=== PATIENT | male | born 1945 | race Caucasian/White ===

== ENCOUNTER 2017-03-16 10:56 | Inpatient (IN) | payer MEDICARE ==
[~2017-03-16] VITALS: Ht 177.8 cm
--- NOTE | ~2017-03-16 | CN ---
PATIENT NAME:CAMERON MORRIS MEDICAL RECORD: [id number] : 45 LOCATION:[facility] ADMIT DATE: 03/16/17 ACCOUNT: [id number] CONSULTING PHYSICIAN: MARIA C GUZMAN MD REFERRING PHYSICIAN: JACKY SMALL MD DATE OF CONSULTATION: 04/13/2017 HISTORY OF PRESENT ILLNESS: Mr. Morris is in ICU, a 72-year-old male. He is having problems with his voice, basically he has been almost aphonic since he was extubated about a week ago. He says he has a remote history of carotid endarterectomy, but had no problems with his voice after that. He says his voice was fine before he was intubated and now he has lost his voice. He is not complaining of any sore throat. No cough. He is not having any aspiration symptoms. PAST MEDICAL HISTORY: Reviewed on the chart. PHYSICAL EXAMINATION: GENERAL: He is healthy-appearing, he is in no distress. He is pretty much aphonic with his voice. EYES: Sclerae and conjunctivae are normal. EARS: Canals and TMs are normal. NOSE: No masses, polyps, or drainage. ORAL CAVITY AND OROPHARYNX: Tongue protrudes in midline. Pharynx looks normal. NECK: No masses, no adenopathy. Flexible laryngoscopy through the right side of nose after decongested with Afrin and Pontocaine. Nasal cavity and nasopharynx normal. Hypopharynx, vallecula, and base of tongue are normal. Supraglottic larynx is normal. Left cord is normal with normal mobility. The right cord really does not look like it is moving. It is in the paramedian position. Subglottis and upper trachea normal. There is no inflammation, granulation, or evidence of any injury there. IMPRESSION: 1. Aphonia 1-week status post extubation. 2. Right vocal cord paralysis apparently related to his intubation, may be a prolonged recovery or he may not recover. He is in ICU now, so not much can be done, but he may be a candidate for a vocal cord injection or medialization after discharge. He is doing okay with swallowing currently, which we have to follow and see how he does over the next couple of weeks. TRANSINT:[id number] Voice Confirmation ID: [id number] DOCUMENT ID: [id number] MARIA C GUZMAN MD at 1145 CC: [id number] DICTATION DATE: 04/13/17 1359 SOLE SCRAPER: 04/13/17 1549 ADM IN [place] [id number] [place] [id number]
--- NOTE | ~2017-03-16 | EC ---
PATIENT:CAMERON MORRIS DATE OF SERVICE: 03/16/17 SEX: M MEDICAL RECORD: [id number] DATE OF : 45 LOCATION:[facility] AGE OF PATIENT: 72 ADMISSION DATE: 03/16/17 REFERRING PHYSICIAN: INTERPRETING PHYSICIAN: MARIO PALMA MD ECHOCARDIOGRAM REPORT ECHO CHARGES 4 ECHO COMPLETE CLINICAL DIAGNOSIS: ELEVATED TROPONIN ECHOCARDIOGRAPHIC MEASUREMENTS (adult normal given) AC root (d.<3.7cm) 2.4 cm LV Septum d (<1.2 cm> 1.3 cm Valve Excursion 1.0 cm LV Septum (systole) 2.0 cm Left Atria (s.<4.0cm> 3.4 cm LVPW d(<1.2cm) 1.0 cm RV (d.<2.3cm) 2.4 cm LVPW (sytole) 1.7 cm LV diastole(<5.6CM) 7.0 cm MV E-F(>70mm/sec) cm LV systole 4.8 cm LVOT Diameter 1.7 cm MV exc.(>10mm) cm Est.ejection fraction (50-75%) % Pericardial Effusion N DOPPLER: LVIT cm/sec A 163 cm/sec E 117 cm/sec LA cm/sec RVSP 21.2 mmHg LVOT 102 cm/sec AOP1/2T m/s Asc. Ao 282 cm/sec RVOT 111 cm/sec RA cm/sec PA 155 cm/sec AV Gradient Peak 32.0 mmHg AV Mean 18.0 mmHg AV Area 0.8 cm MV Gradient Peak 10.3 mmHg MV Mean 3.5 mmHg MV Area cm COMMENTS: Procurement Cost Coordinator: Farnaz MORENOOE Office Sweeper: 4 Dr. Palma TAPE# PACS DATE OF SERVICE: 03/17/2017 PROCEDURE: Transthoracic echocardiogram. FINDINGS: 1. Left ventricle appears to be hyperdynamic in segments. Overall ejection fraction is 65% to 70%, no obvious regional wall motion abnormalities. It is difficult to see endocardial structures in multiple views. 2. The aortic valve appears to be sclerotic without any evidence of stenosis. 3. Inflow characteristics are consistent with diastolic dysfunction versus ECHOCARDIOGRAM REPORT [id number] CAMERON MORRIS possible elevated left ventricular end-diastolic pressures. 4. The right ventricle has right ventricular hypertrophy with normal to hyperdynamic function. 5. Interatrial septum is intact. 6. The left atrium is mildly dilated. 7. The right atrium is normal size, normal function. 8. The RVSP appears to be normal. 9. There is no pericardial effusion. No obvious mass or thrombus. CONCLUSIONS: The patient has evidence of hypertensive heart disease, hyperdynamic function. No obvious valvular abnormalities. TRANSINT:[id number] Voice Confirmation ID: [id number] DOCUMENT ID: [id number] 03/26/2017 Edited to correct date of service, dm. MARIO PALMA MD at 1522 CC: [id number] DICTATION DATE: 03/18/17 0911 COMMUNICATIONS EQUIPMENT INSTALLER: 03/18/17 1249 ADM IN [facility] [address] [place] [address]
--- NOTE | ~2017-03-16 | OP ---
PATIENT NAME: CAMERON MORRIS MEDICAL RECORD: [id number] :45 LOCATION:D.M2 D.2113 ADMISSION DATE:03/16/17 SURGEON: RAIN OLIVER MD DATE OF OPERATION: 03/25/2017 DATE OF OPERATION: 03/25/2017 SURGEON: Rain Oliver MD PREOPERATIVE DIAGNOSES: 1. Unstageable sacral decubitus ulcer. 2. Unstageable left ischial decubitus ulcer. ANESTHESIA: General. COMPLICATIONS: None. SPECIMENS: 1. Tissue culture of sacrum. 2. Bone culture of sacrum. 3. Tissue culture of ischium. 4. Bone culture of left ischium. Case was grossly contaminated. ESTIMATED BLOOD LOSS: 40 cc. COMPLICATIONS: None. OPERATIVE COURSE: After consent was obtained, the patient was taken to the operating room and timeout was taken to confirm the correct patient and procedure. General anesthesia was given via endotracheal intubation. The patient was then placed into the prone position on the operating table. The sacrum and left ischium were prepped and draped in typical sterile fashion. The eschars were sharply debrided using a 10-blade scalpel and electrocautery. All tissue and necrotic tissue was debrided with a combination of sharp dissection and electrocautery until there was bleeding in all directions. The tissue was sent for culture. 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 The sacral tissues were sent for microbiology to rule out osteomyelitis. The wound measured 10 cm in width x 10 cm in height x 4 cm in depth. Sharp debridement was continued in all planes until bleeding was noted at all surfaces. Electrocautery was used for hemostasis. The wound was then packed with Dakin solution and Kerlix gauze. This was repeated on the left ischial eschar. Again, the eschar was sharply debrided using Metzenbaum scissors, 10 blade scalpel and electrocautery in all planes until healthy tissue was identified in all 3 planes. The ischial wound had the ischial tuberosity, was grossly exposed making this a stage IV wound, it was 10 cm in height x 10 cm in width x 4 cm in depth. The devitalized tissue was sent for culture. The portions of the bone were collected and sent for microbiology with fresh clean tissue in all planes. Hemostasis was obtained using electrocautery. The wound was then packed with Dakin's soaked Kerlix gauze. At the end of the case, all needle and instrument counts were correct. No complications occurred. The patient was transferred to recovery room in satisfactory condition. OPERATIVE REPORT [id number] ARTUROCAMERON GÉNESIS TRANSINT:[id number] Voice Confirmation ID: [id number] DOCUMENT ID: [id number] RAIN OLIVER MD at 0840 CC: [id number] DICTATION DATE: 03/25/17 1455 NET PROGRAMMER: 03/25/17 1542 ADM IN [place] [id number] [place] [address]
[~2017-03-16 10:56] MED LIST: ALTACE10 MG PO; ASPIRIN EC81 M1 PO; DEXEDRINE PO; DEXEDRINE10 MG PO; DITROPAN X10 MG/BOTT PO; LANTUS SOL100 UNIT/1 SC; PLAVIX75 MG PO; SEROQUEL100 MG PO; SEROQUEL200 MG PO; SOMA350 MG PO; ULTRAM50 MG PO; VALIUM10 MG PO
[2017-03-16 11:33] LABS: APPEARANCE HAZY (CLEAR); BILIRUBIN NEGATIVE (NEGATIVE); COLOR YELLOW (YELLOW); GLUCOSE NEGATIVE (NEGATIVE); KETONE NEGATIVE (NEGATIVE); NITRITE POSITIVE (NEGATIVE); PROTEIN TRACE mg/dL (NEGATIVE); UROBILINOGEN NORMAL (NORMAL)
[2017-03-16 11:35] LABS: BACTERIA MANY /hpf (NONE SEEN); CALCIUM OXALATE CRYSTALS RARE /hpf (NONE SEEN); EPITHELIAL CELLS 0-5 /hpf (0-5); GRANULAR CAST RARE /lpf (NONE SEEN); RED CELLS - URINE 0-5 /hpf (0-5); WHITE CELLS - URINE 25-50 /hpf (0-5)
[2017-03-16 11:41] LABS: HEMATOCRIT 31.4 % (42.0-54.0); HEMOGLOBIN 10.3 g/dL (13.5-17.5); MCHC 32.8 g/dL (31.0-37.0); MCV 88.5 fL (80.0-100.0); MEAN PLATELET VOLUME 10.3 fL (7.4-10.4); PLATELET COUNT 410 10x3/uL (130-400); RBC 3.55 10x6/uL (4.20-6.10); WBC 20.6 10x3/uL (4.8-10.8)
[2017-03-16 12:02] LABS: ALKALINE PHOSPHATASE 107 U/L (46-116); ALT (SGPT) 61 U/L (10-68); BILIRUBIN - TOTAL 0.24 mg/dL (0.2-1.3); CALC OSMOLALITY 292 mosm/kg (275-300); CALCIUM 9.5 mg/dL (8.5-10.1); CHLORIDE - SERUM 100 mmol/L (98-107); POTASSIUM - SERUM 4.3 mmol/L (3.5-5.1); SODIUM 137 mmol/L (136-145); UREA NITROGEN 40 mg/dL (7-18); eGFR NON AFRICAN AMERICAN 78 mL/min (90-120)
[2017-03-16 12:04] LABS: GLUCOSE 260 mg/dL (74-106)
[2017-03-16 12:10] LABS: LYMPHOCYTES 6 % (15-50); MONOCYTES 3 % (2-11); NEUTROPHILS 89 % (40-80); PLATELET ESTIMATE INCREASED
[2017-03-16 12:47] LABS: INR 1.2 (0.85-1.17); PROTIME 14.7 SECONDS (11.6-15.0)
[2017-03-16 12:55] LABS: D-DIMER-QUANTITATIVE 3.86 ug/mLFEU (0.20-0.54)
[2017-03-16 13:02] LABS: CKMB 9.9 U/L (0.0-3.6); MAGNESIUM - SERUM 2.1 mg/dL (1.8-2.4); PRO BNP 1473 pg/mL (0-125)
[2017-03-16 13:04] LABS: CREATINE KINASE 1735 UL (21-232)
[2017-03-16 15:51] LABS: CKMB 8.8 U/L (0.0-3.6)
[2017-03-16 15:54] LABS: CREATINE KINASE 1423 UL (21-232)
[2017-03-16 16:00] LABS: TROPONIN-I 0.509 ng/mL (0.000-0.060)
[2017-03-16 20:49] LABS: CKMB 5.5 U/L (0.0-3.6); CREATINE KINASE 1072 UL (21-232); TROPONIN-I 0.455 ng/mL (0.000-0.060)
[2017-03-16 22:00] VITALS: BP 111/62
[2017-03-16] MEDS ORDERED: BAYER CHEWABLE81 MG PO (22:06)
[2017-03-16] MEDS ORDERED: BUPROPION HCL75 MG PO (22:08)
[2017-03-16] MEDS ORDERED: COLACE100 MG PO (22:10)
[2017-03-16] MEDS ORDERED: ECOTRIN325 MG PO (22:11)
[2017-03-16] MEDS ORDERED: MYRBETRIQ25 MG PO (22:13)
[2017-03-16] MEDS ORDERED: SEROQUEL50 MG PO (22:16)
[2017-03-16] MEDS ORDERED: OXYBUTYNIN CHLOR5 MG PO (22:17)
[2017-03-16] MEDS ORDERED: PROTONIX40 MG PO (22:18)
[2017-03-16] MEDS ORDERED: ZETIA10 MG PO (22:18)
[2017-03-16] MEDS ORDERED: VITAMIN D2000 UNIT PO (22:18)
[2017-03-16] MEDS ORDERED: ULTRAM50 MG PO (22:50)
[2017-03-16] MEDS ORDERED: KEFLEX500 MG PO (22:52)
[2017-03-16] MEDS ORDERED: HYDROCODONE-APA1 TAB PO (22:53)
[2017-03-16 23:00] VITALS: BP 121/64
[2017-03-17] VITALS (25 sets, daily range): BP systolic 111–154; BP diastolic 58–98; BMI 28.1; BMI 33.4
[2017-03-17 04:06] LABS: BASOPHILS 0.1 % (0-2); EOSINOPHILS 1.6 % (0-7); HEMATOCRIT 30.2 % (42.0-54.0); HEMOGLOBIN 9.8 g/dL (13.5-17.5); IMMATURE GRANULOCYTES 0.4 % (0-5); LYMPHOCYTES 7.7 % (15-50); MCH 28.6 pg (26.0-34.0); MCHC 32.5 g/dL (31.0-37.0); MEAN PLATELET VOLUME 10.6 fL (7.4-10.4); NEUTROPHILS 84.2 % (40-80); PLATELET COUNT 485 10x3/uL (130-400); RBC 3.43 10x6/uL (4.20-6.10)
[2017-03-17 04:38] LABS: ALBUMIN 1.9 g/dL (3.4-5.0); ALKALINE PHOSPHATASE 101 U/L (46-116); ALT (SGPT) 56 U/L (10-68); BILIRUBIN - TOTAL 0.28 mg/dL (0.2-1.3); CALCIUM 9.1 mg/dL (8.5-10.1); CARBON DIOXIDE 29.5 mmol/L (21.0-32.0); CHLORIDE - SERUM 101 mmol/L (98-107); CKMB 3.3 U/L (0.0-3.6); CREATININE - SERUM 0.8 mg/dL (0.6-1.3); POTASSIUM - SERUM 3.8 mmol/L (3.5-5.1); PROTEIN - SERUM 5.8 g/dL (6.4-8.2); SODIUM 137 mmol/L (136-145); UREA NITROGEN 31 mg/dL (7-18); eGFR NON AFRICAN AMERICAN > 90 mL/min (90-120)
[2017-03-17 04:39] LABS: CALC OSMOLALITY 285 mosm/kg (275-300); CREATINE KINASE 740 UL (21-232); GLUCOSE 182 mg/dL (74-106); TROPONIN-I 0.452 ng/mL (0.000-0.060)
[2017-03-18] VITALS (24 sets, daily range): BP systolic 108–136; BP diastolic 56–82
[2017-03-18 05:22] LABS: BASOPHILS 0.2 % (0-2); EOSINOPHILS 3.2 % (0-7); HEMATOCRIT 30.2 % (42.0-54.0); HEMOGLOBIN 9.9 g/dL (13.5-17.5); IMMATURE GRANULOCYTES 0.5 % (0-5); LYMPHOCYTES 8.4 % (15-50); MCH 28.7 pg (26.0-34.0); MCHC 32.8 g/dL (31.0-37.0); MCV 87.5 fL (80.0-100.0); MEAN PLATELET VOLUME 10.2 fL (7.4-10.4); MONOCYTES 6.5 % (2-11); NEUTROPHILS 81.2 % (40-80); PLATELET COUNT 454 10x3/uL (130-400); RBC 3.45 10x6/uL (4.20-6.10); RDW 14.9 % (11.5-14.5); WBC 13.3 10x3/uL (4.8-10.8)
[2017-03-18 05:50] LABS: CALCIUM 8.8 mg/dL (8.5-10.1); CARBON DIOXIDE 28.8 mmol/L (21.0-32.0); CHLORIDE - SERUM 104 mmol/L (98-107); CREATININE - SERUM 0.6 mg/dL (0.6-1.3); GLUCOSE 147 mg/dL (74-106); SODIUM 140 mmol/L (136-145); eGFR NON AFRICAN AMERICAN > 90 mL/min (90-120)
[2017-03-18 05:54] LABS: CALC OSMOLALITY 285 mosm/kg (275-300); POTASSIUM - SERUM 4.5 mmol/L (3.5-5.1); UREA NITROGEN 23 mg/dL (7-18)
[2017-03-19] VITALS (20 sets, daily range): BP systolic 96–158; BP diastolic 49–94
[2017-03-19 03:59] LABS: BASOPHILS 0.1 % (0-2); EOSINOPHILS 3.4 % (0-7); HEMATOCRIT 28.8 % (42.0-54.0); HEMOGLOBIN 9.2 g/dL (13.5-17.5); IMMATURE GRANULOCYTES 1.5 % (0-5); LYMPHOCYTES 10.2 % (15-50); MCH 27.9 pg (26.0-34.0); MCHC 31.9 g/dL (31.0-37.0); MCV 87.3 fL (80.0-100.0); MEAN PLATELET VOLUME 10.4 fL (7.4-10.4); MONOCYTES 6.6 % (2-11); NEUTROPHILS 78.2 % (40-80); PLATELET COUNT 450 10x3/uL (130-400); WBC 13.5 10x3/uL (4.8-10.8)
[2017-03-19 04:12] LABS: CALC OSMOLALITY 284 mosm/kg (275-300); CALCIUM 8.4 mg/dL (8.5-10.1); CARBON DIOXIDE 27.4 mmol/L (21.0-32.0); CHLORIDE - SERUM 104 mmol/L (98-107); CREATININE - SERUM 0.6 mg/dL (0.6-1.3); GLUCOSE 181 mg/dL (74-106); POTASSIUM - SERUM 4.4 mmol/L (3.5-5.1); SODIUM 139 mmol/L (136-145); UREA NITROGEN 18 mg/dL (7-18); eGFR NON AFRICAN AMERICAN > 90 mL/min (90-120)
[2017-03-20] VITALS: BP 120/60
[2017-03-20 06:21] VITALS: BP 127/64
[2017-03-20 08:08] VITALS: BP 136/65
[2017-03-20 12:25] VITALS: BP 121/62
[2017-03-20 15:33] LABS: BASOPHILS 0.2 % (0-2); EOSINOPHILS 3.5 % (0-7); HEMOGLOBIN 9.7 g/dL (13.5-17.5); IMMATURE GRANULOCYTES 1.5 % (0-5); LYMPHOCYTES 10.2 % (15-50); MCH 28.1 pg (26.0-34.0); MCHC 32.3 g/dL (31.0-37.0); MEAN PLATELET VOLUME 10.4 fL (7.4-10.4); NEUTROPHILS 78.6 % (40-80); PLATELET COUNT 454 10x3/uL (130-400); RBC 3.45 10x6/uL (4.20-6.10); RDW 15.1 % (11.5-14.5); WBC 15.1 10x3/uL (4.8-10.8)
[2017-03-20 15:40] LABS: CALC OSMOLALITY 273 mosm/kg (275-300); CALCIUM 8.6 mg/dL (8.5-10.1); CARBON DIOXIDE 30.7 mmol/L (21.0-32.0); CHLORIDE - SERUM 99 mmol/L (98-107); CREATININE - SERUM 0.6 mg/dL (0.6-1.3); GLUCOSE 174 mg/dL (74-106); SODIUM 135 mmol/L (136-145); eGFR NON AFRICAN AMERICAN > 90 mL/min (90-120)
[2017-03-20 15:41] LABS: UREA NITROGEN 13 mg/dL (7-18)
[2017-03-20 17:29] VITALS: BP 99/64
[2017-03-20 21:16] VITALS: BP 106/66
[2017-03-21 01:23] VITALS: BP 127/62
[2017-03-21 05:26] LABS: BASOPHILS 0.2 % (0-2); EOSINOPHILS 4.9 % (0-7); HEMATOCRIT 30.2 % (42.0-54.0); HEMOGLOBIN 9.8 g/dL (13.5-17.5); IMMATURE GRANULOCYTES 1.9 % (0-5); LYMPHOCYTES 8.8 % (15-50); MCHC 32.5 g/dL (31.0-37.0); MCV 86.3 fL (80.0-100.0); MEAN PLATELET VOLUME 10.1 fL (7.4-10.4); MONOCYTES 6.7 % (2-11); NEUTROPHILS 77.5 % (40-80); PLATELET COUNT 473 10x3/uL (130-400); RDW 14.9 % (11.5-14.5)
[2017-03-21 05:38] LABS: CALC OSMOLALITY 270 mosm/kg (275-300); CALCIUM 8.2 mg/dL (8.5-10.1); CARBON DIOXIDE 28.3 mmol/L (21.0-32.0); CHLORIDE - SERUM 100 mmol/L (98-107); CREATININE - SERUM 0.6 mg/dL (0.6-1.3); GLUCOSE 132 mg/dL (74-106); SODIUM 135 mmol/L (136-145); UREA NITROGEN 11 mg/dL (7-18); eGFR NON AFRICAN AMERICAN > 90 mL/min (90-120)
[2017-03-21 08:11] VITALS: BP 102/47
[2017-03-21 11:47] VITALS: BP 140/64
[2017-03-21 16:18] VITALS: BP 128/68
[2017-03-21 21:39] VITALS: BP 134/67
[2017-03-22 00:54] VITALS: BP 149/74
[2017-03-22 04:26] LABS: BASOPHILS 0.1 % (0-2); EOSINOPHILS 4.8 % (0-7); HEMATOCRIT 30.2 % (42.0-54.0); HEMOGLOBIN 9.7 g/dL (13.5-17.5); LYMPHOCYTES 9.5 % (15-50); MCH 27.9 pg (26.0-34.0); MCHC 32.1 g/dL (31.0-37.0); MCV 86.8 fL (80.0-100.0); MONOCYTES 5.5 % (2-11); NEUTROPHILS 78.1 % (40-80); PLATELET COUNT 507 10x3/uL (130-400); RBC 3.48 10x6/uL (4.20-6.10); RDW 14.9 % (11.5-14.5)
[2017-03-22 04:42] LABS: CALC OSMOLALITY 273 mosm/kg (275-300); CALCIUM 7.9 mg/dL (8.5-10.1); CARBON DIOXIDE 30.2 mmol/L (21.0-32.0); CHLORIDE - SERUM 101 mmol/L (98-107); CREATININE - SERUM 0.6 mg/dL (0.6-1.3); GLUCOSE 160 mg/dL (74-106); POTASSIUM - SERUM 3.8 mmol/L (3.5-5.1); SODIUM 136 mmol/L (136-145); UREA NITROGEN 10 mg/dL (7-18); eGFR NON AFRICAN AMERICAN > 90 mL/min (90-120)
[2017-03-22 06:02] VITALS: BP 117/60
[2017-03-22 09:46] VITALS: BP 104/52
[2017-03-22 16:29] VITALS: BP 125/63
[2017-03-22 19:00] VITALS: BP 159/77
[2017-03-23 05:41] LABS: BASOPHILS 0.2 % (0-2); EOSINOPHILS 4.4 % (0-7); HEMATOCRIT 30.6 % (42.0-54.0); HEMOGLOBIN 9.9 g/dL (13.5-17.5); IMMATURE GRANULOCYTES 1.2 % (0-5); LYMPHOCYTES 8.4 % (15-50); MCH 28.1 pg (26.0-34.0); MCHC 32.4 g/dL (31.0-37.0); MCV 86.9 fL (80.0-100.0); MONOCYTES 5.3 % (2-11); NEUTROPHILS 80.5 % (40-80); PLATELET COUNT 576 10x3/uL (130-400); RBC 3.52 10x6/uL (4.20-6.10); WBC 16.1 10x3/uL (4.8-10.8)
[2017-03-23 05:44] LABS: CALC OSMOLALITY 269 mosm/kg (275-300); CALCIUM 8.4 mg/dL (8.5-10.1); CARBON DIOXIDE 27.1 mmol/L (21.0-32.0); CHLORIDE - SERUM 100 mmol/L (98-107); CREATININE - SERUM 0.7 mg/dL (0.6-1.3); GLUCOSE 122 mg/dL (74-106); SODIUM 135 mmol/L (136-145); UREA NITROGEN 9 mg/dL (7-18); eGFR NON AFRICAN AMERICAN > 90 mL/min (90-120)
[2017-03-23 08:43] VITALS: BP 107/57
[2017-03-23 17:50] VITALS: BP 135/68
[2017-03-23 22:14] VITALS: BP 146/68
[2017-03-24 01:10] VITALS: BP 119/66
[2017-03-24 05:01] LABS: CALC OSMOLALITY 273 mosm/kg (275-300); CALCIUM 8.2 mg/dL (8.5-10.1); CARBON DIOXIDE 30.2 mmol/L (21.0-32.0); CHLORIDE - SERUM 101 mmol/L (98-107); GLUCOSE 139 mg/dL (74-106); SODIUM 137 mmol/L (136-145); UREA NITROGEN 8 mg/dL (7-18)
[2017-03-24 05:07] VITALS: BP 118/59
[2017-03-24 05:09] LABS: BASOPHILS 0.2 % (0-2); EOSINOPHILS 5.4 % (0-7); HEMATOCRIT 31.1 % (42.0-54.0); HEMOGLOBIN 9.9 g/dL (13.5-17.5); IMMATURE GRANULOCYTES 1.3 % (0-5); LYMPHOCYTES 11.3 % (15-50); MCH 27.8 pg (26.0-34.0); MCHC 31.8 g/dL (31.0-37.0); MCV 87.4 fL (80.0-100.0); MEAN PLATELET VOLUME 10.3 fL (7.4-10.4); MONOCYTES 5.3 % (2-11); NEUTROPHILS 76.5 % (40-80); PLATELET COUNT 598 10x3/uL (130-400); RBC 3.56 10x6/uL (4.20-6.10); WBC 13.6 10x3/uL (4.8-10.8)
[2017-03-24 05:22] LABS: CREATININE - SERUM 0.5 mg/dL (0.6-1.3); eGFR NON AFRICAN AMERICAN > 90 mL/min (90-120)
[2017-03-24 08:41] VITALS: BP 134/56
[2017-03-24 12:30] VITALS: BP 120/62
[2017-03-24 15:17] VITALS: Ht 177.8 cm
[2017-03-24 17:27] VITALS: BP 152/72
[2017-03-24 21:59] VITALS: BP 133/65
[2017-03-25 01:46] VITALS: BP 106/50
[2017-03-25 05:20] LABS: CALC OSMOLALITY 271 mosm/kg (275-300); CALCIUM 8.4 mg/dL (8.5-10.1); CARBON DIOXIDE 28.2 mmol/L (21.0-32.0); CHLORIDE - SERUM 99 mmol/L (98-107); CREATININE - SERUM 0.6 mg/dL (0.6-1.3); GLUCOSE 128 mg/dL (74-106); SODIUM 136 mmol/L (136-145); UREA NITROGEN 8 mg/dL (7-18); eGFR NON AFRICAN AMERICAN > 90 mL/min (90-120)
[2017-03-25 05:24] VITALS: BP 91/47
[2017-03-25 05:29] LABS: BASOPHILS 0.1 % (0-2); EOSINOPHILS 3.5 % (0-7); HEMATOCRIT 31.9 % (42.0-54.0); HEMOGLOBIN 10.2 g/dL (13.5-17.5); IMMATURE GRANULOCYTES 0.8 % (0-5); LYMPHOCYTES 10.2 % (15-50); MCH 27.9 pg (26.0-34.0); MCV 87.4 fL (80.0-100.0); MEAN PLATELET VOLUME 10.3 fL (7.4-10.4); MONOCYTES 4.9 % (2-11); NEUTROPHILS 80.5 % (40-80); PLATELET COUNT 590 10x3/uL (130-400); RBC 3.65 10x6/uL (4.20-6.10); RDW 15.1 % (11.5-14.5); WBC 14.1 10x3/uL (4.8-10.8)
[2017-03-25 08:30] VITALS: BP 109/55
[2017-03-25 11:28] VITALS: BP 103/52
[2017-03-25 15:46] VITALS: BP 109/56
[2017-03-25 21:37] VITALS: BP 113/53
[2017-03-26 05:35] LABS: HEMOGLOBIN 9.1 g/dL (13.5-17.5); MCH 27.7 pg (26.0-34.0); MCHC 31.4 g/dL (31.0-37.0); MCV 88.1 fL (80.0-100.0); MEAN PLATELET VOLUME 10.1 fL (7.4-10.4); PLATELET COUNT 600 10x3/uL (130-400); RBC 3.29 10x6/uL (4.20-6.10); RDW 15.3 % (11.5-14.5); WBC 12.3 10x3/uL (4.8-10.8)
[2017-03-26 05:36] VITALS: BP 99/53
[2017-03-26 05:57] LABS: CALC OSMOLALITY 274 mosm/kg (275-300); CALCIUM 7.7 mg/dL (8.5-10.1); CARBON DIOXIDE 29.8 mmol/L (21.0-32.0); CHLORIDE - SERUM 102 mmol/L (98-107); CREATININE - SERUM 0.6 mg/dL (0.6-1.3); GLUCOSE 109 mg/dL (74-106); POTASSIUM - SERUM 4.2 mmol/L (3.5-5.1); SODIUM 138 mmol/L (136-145); UREA NITROGEN 8 mg/dL (7-18); eGFR NON AFRICAN AMERICAN > 90 mL/min (90-120)
[2017-03-26 06:30] LABS: BASOPHILS 0.2 % (0-2); EOSINOPHILS 4.4 % (0-7); IMMATURE GRANULOCYTES 0.6 % (0-5); LYMPHOCYTES 10.3 % (15-50); MONOCYTES 5.4 % (2-11); NEUTROPHILS 79.1 % (40-80)
[2017-03-26 08:23] VITALS: BP 122/62
[2017-03-26 12:14] VITALS: BP 96/50
[2017-03-26 17:09] VITALS: BP 93/46
[2017-03-26 21:30] VITALS: BP 102/46
[2017-03-27 06:30] LABS: CALC OSMOLALITY 274 mosm/kg (275-300); CALCIUM 8.2 mg/dL (8.5-10.1); CARBON DIOXIDE 29.3 mmol/L (21.0-32.0); CHLORIDE - SERUM 101 mmol/L (98-107); CREATININE - SERUM 0.5 mg/dL (0.6-1.3); GLUCOSE 122 mg/dL (74-106); POTASSIUM - SERUM 3.9 mmol/L (3.5-5.1); SODIUM 138 mmol/L (136-145); UREA NITROGEN 8 mg/dL (7-18); eGFR NON AFRICAN AMERICAN > 90 mL/min (90-120)
[2017-03-27 06:36] VITALS: BP 72/44
[2017-03-27 06:50] LABS: BASOPHILS 0.2 % (0-2); EOSINOPHILS 2.3 % (0-7); HEMATOCRIT 27.9 % (42.0-54.0); HEMOGLOBIN 8.8 g/dL (13.5-17.5); IMMATURE GRANULOCYTES 0.5 % (0-5); LYMPHOCYTES 10.3 % (15-50); MCH 27.6 pg (26.0-34.0); MCHC 31.5 g/dL (31.0-37.0); MCV 87.5 fL (80.0-100.0); MONOCYTES 6.5 % (2-11); NEUTROPHILS 80.2 % (40-80); PLATELET COUNT 573 10x3/uL (130-400); RBC 3.19 10x6/uL (4.20-6.10); RDW 15.3 % (11.5-14.5)
[2017-03-27 09:09] VITALS: BP 96/54
[2017-03-27 12:15] VITALS: BP 94/49
[2017-03-27 20:26] VITALS: BP 115/64
[2017-03-28 03:34] VITALS: BP 99/50
[2017-03-28 05:22] LABS: BASOPHILS 0.2 % (0-2); EOSINOPHILS 3.3 % (0-7); HEMATOCRIT 27.6 % (42.0-54.0); HEMOGLOBIN 8.7 g/dL (13.5-17.5); IMMATURE GRANULOCYTES 0.4 % (0-5); LYMPHOCYTES 9.6 % (15-50); MCH 27.4 pg (26.0-34.0); MCHC 31.5 g/dL (31.0-37.0); MCV 86.8 fL (80.0-100.0); MEAN PLATELET VOLUME 10.2 fL (7.4-10.4); MONOCYTES 7.1 % (2-11); NEUTROPHILS 79.4 % (40-80); PLATELET COUNT 591 10x3/uL (130-400); RBC 3.18 10x6/uL (4.20-6.10); RDW 15.3 % (11.5-14.5); WBC 13.2 10x3/uL (4.8-10.8)
[2017-03-28 05:47] LABS: CALC OSMOLALITY 272 mosm/kg (275-300); CALCIUM 8.3 mg/dL (8.5-10.1); CHLORIDE - SERUM 100 mmol/L (98-107); CREATININE - SERUM 0.6 mg/dL (0.6-1.3); GLUCOSE 135 mg/dL (74-106); SODIUM 136 mmol/L (136-145); UREA NITROGEN 9 mg/dL (7-18); eGFR NON AFRICAN AMERICAN > 90 mL/min (90-120)
[2017-03-28 07:00] VITALS: BP 99/51
[2017-03-28 09:29] VITALS: BP 117/76
[2017-03-28 12:48] VITALS: BP 101/53
[2017-03-28 16:00] VITALS: BP 104/59
[2017-03-28 21:41] VITALS: BP 105/63
[2017-03-29 01:10] VITALS: BP 99/50
[2017-03-29 04:58] VITALS: BP 99/62
[2017-03-29 05:40] LABS: CALC OSMOLALITY 274 mosm/kg (275-300); CARBON DIOXIDE 30.2 mmol/L (21.0-32.0); CHLORIDE - SERUM 99 mmol/L (98-107); CREATININE - SERUM 0.7 mg/dL (0.6-1.3); GLUCOSE 164 mg/dL (74-106); POTASSIUM - SERUM 4.1 mmol/L (3.5-5.1); SODIUM 136 mmol/L (136-145); UREA NITROGEN 10 mg/dL (7-18); eGFR NON AFRICAN AMERICAN > 90 mL/min (90-120)
[2017-03-29 05:45] LABS: BASOPHILS 0.2 % (0-2); EOSINOPHILS 2.6 % (0-7); HEMATOCRIT 28.3 % (42.0-54.0); HEMOGLOBIN 9.1 g/dL (13.5-17.5); IMMATURE GRANULOCYTES 0.3 % (0-5); MCHC 32.2 g/dL (31.0-37.0); MCV 87.1 fL (80.0-100.0); MEAN PLATELET VOLUME 10.1 fL (7.4-10.4); MONOCYTES 7.9 % (2-11); PLATELET COUNT 580 10x3/uL (130-400); RBC 3.25 10x6/uL (4.20-6.10); RDW 15.4 % (11.5-14.5); WBC 13.3 10x3/uL (4.8-10.8)
[2017-03-29 08:14] VITALS: BP 93/57
[2017-03-29 10:56] VITALS: BP 100/72
[2017-03-29 15:04] VITALS: BP 102/70
[2017-03-29 23:00] VITALS: BP 102/70
[2017-03-30] VITALS (23 sets, daily range): BP systolic 92–160; BP diastolic 29–88
[2017-03-30 04:19] LABS: BASOPHILS 0.3 % (0-2); EOSINOPHILS 0.6 % (0-7); HEMATOCRIT 32.6 % (42.0-54.0); HEMOGLOBIN 10.2 g/dL (13.5-17.5); IMMATURE GRANULOCYTES 0.4 % (0-5); LYMPHOCYTES 5.3 % (15-50); MCH 27.8 pg (26.0-34.0); MCHC 31.3 g/dL (31.0-37.0); MCV 88.8 fL (80.0-100.0); MEAN PLATELET VOLUME 10.5 fL (7.4-10.4); MONOCYTES 7.5 % (2-11); NEUTROPHILS 85.9 % (40-80); RBC 3.67 10x6/uL (4.20-6.10); RDW 15.7 % (11.5-14.5)
[2017-03-30 04:20] LABS: PLATELET COUNT 740 10x3/uL (130-400)
[2017-03-30 04:54] LABS: ALBUMIN 2.1 g/dL (3.4-5.0); ALKALINE PHOSPHATASE 73 U/L (46-116); ALT (SGPT) 25 U/L (10-68); BILIRUBIN - TOTAL 0.45 mg/dL (0.2-1.3); CALC OSMOLALITY 275 mosm/kg (275-300); CALCIUM 8.8 mg/dL (8.5-10.1); CARBON DIOXIDE 27.8 mmol/L (21.0-32.0); CHLORIDE - SERUM 97 mmol/L (98-107); CREATININE - SERUM 0.8 mg/dL (0.6-1.3); GLUCOSE 187 mg/dL (74-106); POTASSIUM - SERUM 4.1 mmol/L (3.5-5.1); PROTEIN - SERUM 6.4 g/dL (6.4-8.2); SODIUM 136 mmol/L (136-145); UREA NITROGEN 11 mg/dL (7-18); eGFR NON AFRICAN AMERICAN > 90 mL/min (90-120)
[2017-03-30 08:10] LABS: MAGNESIUM - SERUM 1.8 mg/dL (1.8-2.4); PHOSPHOROUS 3.8 mg/dL (2.5-4.9)
[2017-03-30 14:24] LABS: APPEARANCE CLEAR (CLEAR); BILIRUBIN NEGATIVE (NEGATIVE); COLOR YELLOW (YELLOW); GLUCOSE NEGATIVE (NEGATIVE); KETONE MODERATE mg/dL (NEGATIVE); NITRITE NEGATIVE (NEGATIVE); PROTEIN TRACE mg/dL (NEGATIVE); SPECIFIC GRAVITY 1.025 (1.005-1.020); UROBILINOGEN NORMAL (NORMAL)
[2017-03-30 14:29] LABS: BACTERIA FEW /hpf (NONE SEEN); EPITHELIAL CELLS 0-5 /hpf (0-5); GRANULAR CAST OCC /lpf (NONE SEEN); HYALINE CAST 0-5 /lpf (NONE SEEN); MUCUS <1+ /lpf (NONE SEEN); RED CELLS - URINE 0-5 /hpf (0-5); WHITE CELLS - URINE 0-5 /hpf (0-5)
[2017-03-31] VITALS (24 sets, daily range): BP systolic 85–119; BP diastolic 52–77
[2017-03-31 03:53] LABS: BASOPHILS 0.1 % (0-2); EOSINOPHILS 0.1 % (0-7); HEMATOCRIT 29.7 % (42.0-54.0); HEMOGLOBIN 9.2 g/dL (13.5-17.5); IMMATURE GRANULOCYTES 0.4 % (0-5); LYMPHOCYTES 7.1 % (15-50); MCH 27.5 pg (26.0-34.0); MCV 88.7 fL (80.0-100.0); MEAN PLATELET VOLUME 10.4 fL (7.4-10.4); MONOCYTES 7.5 % (2-11); NEUTROPHILS 84.8 % (40-80); PLATELET COUNT 526 10x3/uL (130-400); RBC 3.35 10x6/uL (4.20-6.10); RDW 15.7 % (11.5-14.5); WBC 13.7 10x3/uL (4.8-10.8)
[2017-03-31 04:17] LABS: ALBUMIN 1.9 g/dL (3.4-5.0); ALKALINE PHOSPHATASE 77 U/L (46-116); BILIRUBIN - TOTAL 0.46 mg/dL (0.2-1.3); CALCIUM 9.1 mg/dL (8.5-10.1); CARBON DIOXIDE 30.9 mmol/L (21.0-32.0); CHLORIDE - SERUM 99 mmol/L (98-107); CREATININE - SERUM 0.9 mg/dL (0.6-1.3); GLUCOSE 196 mg/dL (74-106); POTASSIUM - SERUM 4.6 mmol/L (3.5-5.1); SODIUM 139 mmol/L (136-145); eGFR NON AFRICAN AMERICAN 88 mL/min (90-120)
[2017-03-31 04:25] LABS: ALT (SGPT) 933 U/L (10-68); CALC OSMOLALITY 285 mosm/kg (275-300); UREA NITROGEN 20 mg/dL (7-18)
[2017-03-31 21:02] LABS: INR 1.47 (0.85-1.17); PROTIME 17.3 SECONDS (11.6-15.0)
[2017-04-01] VITALS (24 sets, daily range): BP systolic 95–110; BP diastolic 57–66
[2017-04-01 05:16] LABS: BASOPHILS 0.3 % (0-2); EOSINOPHILS 3.3 % (0-7); HEMATOCRIT 26.5 % (42.0-54.0); HEMOGLOBIN 8.2 g/dL (13.5-17.5); IMMATURE GRANULOCYTES 0.4 % (0-5); LYMPHOCYTES 9.4 % (15-50); MCH 27.5 pg (26.0-34.0); MCHC 30.9 g/dL (31.0-37.0); MCV 88.9 fL (80.0-100.0); MEAN PLATELET VOLUME 10.2 fL (7.4-10.4); MONOCYTES 7.8 % (2-11); NEUTROPHILS 78.8 % (40-80); PLATELET COUNT 425 10x3/uL (130-400); RBC 2.98 10x6/uL (4.20-6.10)
[2017-04-01 05:22] LABS: WBC 9.5 10x3/uL (4.8-10.8)
[2017-04-01 05:37] LABS: ALBUMIN 1.6 g/dL (3.4-5.0); ALKALINE PHOSPHATASE 75 U/L (46-116); BILIRUBIN - TOTAL 0.41 mg/dL (0.2-1.3); CALC OSMOLALITY 285 mosm/kg (275-300); CARBON DIOXIDE 27.3 mmol/L (21.0-32.0); CHLORIDE - SERUM 102 mmol/L (98-107); CREATININE - SERUM 0.7 mg/dL (0.6-1.3); GLUCOSE 174 mg/dL (74-106); PROTEIN - SERUM 5.3 g/dL (6.4-8.2); SODIUM 139 mmol/L (136-145); UREA NITROGEN 23 mg/dL (7-18); eGFR NON AFRICAN AMERICAN > 90 mL/min (90-120)
[2017-04-01 05:41] LABS: ALT (SGPT) 517 U/L (10-68); POTASSIUM - SERUM 3.7 mmol/L (3.5-5.1)
[2017-04-01 13:39] LABS: PROTEIN - BODY FLUID 1.4 G/DL
[2017-04-01 13:57] LABS: MACROPHAGES BF 1 %; MESOTHELIALS BF 2 %; NEUT - BF 66 %
[2017-04-01 20:00] LABS: HEMATOCRIT 29.2 % (42.0-54.0); HEMOGLOBIN 9.1 g/dL (13.5-17.5)
[2017-04-02] VITALS (29 sets, daily range): BP systolic 88–117; BP diastolic 52–69
[2017-04-02 04:28] LABS: INR 1.25 (0.85-1.17); PROTIME 15.3 SECONDS (11.6-15.0)
[2017-04-02 04:29] LABS: BASOPHILS 0.3 % (0-2); EOSINOPHILS 3.9 % (0-7); HEMATOCRIT 30.8 % (42.0-54.0); HEMOGLOBIN 9.8 g/dL (13.5-17.5); IMMATURE GRANULOCYTES 0.8 % (0-5); LYMPHOCYTES 9.5 % (15-50); MCH 27.8 pg (26.0-34.0); MCHC 31.8 g/dL (31.0-37.0); MCV 87.3 fL (80.0-100.0); MEAN PLATELET VOLUME 10.4 fL (7.4-10.4); MONOCYTES 6.6 % (2-11); NEUTROPHILS 78.9 % (40-80); PLATELET COUNT 409 10x3/uL (130-400); RBC 3.53 10x6/uL (4.20-6.10); RDW 16.6 % (11.5-14.5); WBC 10.4 10x3/uL (4.8-10.8)
[2017-04-02 04:39] LABS: ALBUMIN 1.6 g/dL (3.4-5.0); ALKALINE PHOSPHATASE 96 U/L (46-116); CALC OSMOLALITY 284 mosm/kg (275-300); CALCIUM 7.9 mg/dL (8.5-10.1); CARBON DIOXIDE 28.7 mmol/L (21.0-32.0); CHLORIDE - SERUM 103 mmol/L (98-107); CREATININE - SERUM 0.7 mg/dL (0.6-1.3); GLUCOSE 177 mg/dL (74-106); LDH 226 U/L (85-227); POTASSIUM - SERUM 3.8 mmol/L (3.5-5.1); PROTEIN - SERUM 5.4 g/dL (6.4-8.2); SODIUM 139 mmol/L (136-145); UREA NITROGEN 21 mg/dL (7-18); eGFR NON AFRICAN AMERICAN > 90 mL/min (90-120)
[2017-04-02 04:45] LABS: ALT (SGPT) 348 U/L (10-68)
[2017-04-02 12:59] LABS: HEMATOCRIT 31.8 % (42.0-54.0); HEMOGLOBIN 10.1 g/dL (13.5-17.5)
[2017-04-02 13:19] LABS: HEPATITIS C ANTIBODY <0.1 (0.0-0.9)
[2017-04-02 14:23] LABS: AEROBE ID Final report (()); RESULT 1 Enterococcus avium (())
[2017-04-02 21:50] LABS: HEMATOCRIT 30.8 % (42.0-54.0); HEMOGLOBIN 9.9 g/dL (13.5-17.5)
[2017-04-03] VITALS (51 sets, daily range): BP systolic 81–127; BP diastolic 48–75
[2017-04-03 04:22] LABS: BASOPHILS 0.3 % (0-2); EOSINOPHILS 4.9 % (0-7); HEMATOCRIT 31.2 % (42.0-54.0); IMMATURE GRANULOCYTES 1.4 % (0-5); LYMPHOCYTES 9.7 % (15-50); MCHC 32.1 g/dL (31.0-37.0); MCV 87.4 fL (80.0-100.0); MEAN PLATELET VOLUME 10.8 fL (7.4-10.4); MONOCYTES 9.8 % (2-11); NEUTROPHILS 73.9 % (40-80); PLATELET COUNT 450 10x3/uL (130-400); RBC 3.57 10x6/uL (4.20-6.10); RDW 16.8 % (11.5-14.5); WBC 10.9 10x3/uL (4.8-10.8)
[2017-04-03 04:42] LABS: ALBUMIN 1.7 g/dL (3.4-5.0); ALKALINE PHOSPHATASE 104 U/L (46-116); ALT (SGPT) 263 U/L (10-68); BILIRUBIN - TOTAL 0.49 mg/dL (0.2-1.3); CALC OSMOLALITY 290 mosm/kg (275-300); CALCIUM 7.7 mg/dL (8.5-10.1); CARBON DIOXIDE 32.6 mmol/L (21.0-32.0); CHLORIDE - SERUM 102 mmol/L (98-107); CREATININE - SERUM 0.7 mg/dL (0.6-1.3); GLUCOSE 215 mg/dL (74-106); POTASSIUM - SERUM 3.3 mmol/L (3.5-5.1); PRO BNP 14038 pg/mL (0-125); PROTEIN - SERUM 5.5 g/dL (6.4-8.2); SODIUM 142 mmol/L (136-145); UREA NITROGEN 18 mg/dL (7-18); eGFR NON AFRICAN AMERICAN > 90 mL/min (90-120)
[2017-04-03 07:43] LABS: APTT 30.4 SECONDS (22.8-39.4); INR 1.15 (0.85-1.17); PROTIME 14.3 SECONDS (11.6-15.0)
[2017-04-04] VITALS (24 sets, daily range): BP systolic 83–114; BP diastolic 48–69
[2017-04-04 04:50] LABS: BASOPHILS 0.3 % (0-2); EOSINOPHILS 6.3 % (0-7); HEMATOCRIT 31.6 % (42.0-54.0); HEMOGLOBIN 9.9 g/dL (13.5-17.5); LYMPHOCYTES 8.9 % (15-50); MCH 27.5 pg (26.0-34.0); MCHC 31.3 g/dL (31.0-37.0); MCV 87.8 fL (80.0-100.0); MEAN PLATELET VOLUME 10.7 fL (7.4-10.4); NEUTROPHILS 74.5 % (40-80); RDW 16.9 % (11.5-14.5); WBC 10.2 10x3/uL (4.8-10.8)
[2017-04-04 04:59] LABS: PLATELET COUNT 356 10x3/uL (130-400)
[2017-04-04 05:20] LABS: ALBUMIN 1.6 g/dL (3.4-5.0); ALKALINE PHOSPHATASE 92 U/L (46-116); CALC OSMOLALITY 291 mosm/kg (275-300); CALCIUM 7.7 mg/dL (8.5-10.1); CARBON DIOXIDE 34.8 mmol/L (21.0-32.0); CHLORIDE - SERUM 102 mmol/L (98-107); CREATININE - SERUM 0.6 mg/dL (0.6-1.3); GLUCOSE 253 mg/dL (74-106); MAGNESIUM - SERUM 1.8 mg/dL (1.8-2.4); PHOSPHOROUS 2.8 mg/dL (2.5-4.9); POTASSIUM - SERUM 3.2 mmol/L (3.5-5.1); PRO BNP 17210 pg/mL (0-125); PROTEIN - SERUM 5.2 g/dL (6.4-8.2); SODIUM 141 mmol/L (136-145); UREA NITROGEN 18 mg/dL (7-18); eGFR NON AFRICAN AMERICAN > 90 mL/min (90-120)
[2017-04-04 05:21] LABS: ALT (SGPT) 163 U/L (10-68)
[2017-04-05] VITALS (24 sets, daily range): BP systolic 85–109; BP diastolic 52–87
[2017-04-05 04:58] LABS: BASOPHILS 0.2 % (0-2); EOSINOPHILS 7.2 % (0-7); HEMATOCRIT 30.8 % (42.0-54.0); HEMOGLOBIN 9.5 g/dL (13.5-17.5); IMMATURE GRANULOCYTES 0.9 % (0-5); LYMPHOCYTES 8.1 % (15-50); MCH 27.5 pg (26.0-34.0); MCHC 30.8 g/dL (31.0-37.0); MEAN PLATELET VOLUME 11.3 fL (7.4-10.4); MONOCYTES 8.5 % (2-11); NEUTROPHILS 75.1 % (40-80); PLATELET COUNT 324 10x3/uL (130-400); RBC 3.46 10x6/uL (4.20-6.10); RDW 17.3 % (11.5-14.5); WBC 11.2 10x3/uL (4.8-10.8)
[2017-04-05 05:15] LABS: ALBUMIN 1.6 g/dL (3.4-5.0); ALKALINE PHOSPHATASE 77 U/L (46-116); CALC OSMOLALITY 295 mosm/kg (275-300); CALCIUM 7.9 mg/dL (8.5-10.1); CARBON DIOXIDE 38.2 mmol/L (21.0-32.0); CHLORIDE - SERUM 102 mmol/L (98-107); CREATININE - SERUM 0.7 mg/dL (0.6-1.3); GLUCOSE 236 mg/dL (74-106); PRO BNP 14141 pg/mL (0-125); PROTEIN - SERUM 5.3 g/dL (6.4-8.2); SODIUM 143 mmol/L (136-145); UREA NITROGEN 21 mg/dL (7-18); eGFR NON AFRICAN AMERICAN > 90 mL/min (90-120)
[2017-04-05 05:20] LABS: ALT (SGPT) 114 U/L (10-68); POTASSIUM - SERUM 3.8 mmol/L (3.5-5.1)
[2017-04-06] VITALS (24 sets, daily range): BP systolic 85–109; BP diastolic 49–70
[2017-04-06 06:15] LABS: BASOPHILS 0.4 % (0-2); EOSINOPHILS 10.2 % (0-7); HEMOGLOBIN 8.8 g/dL (13.5-17.5); IMMATURE GRANULOCYTES 0.5 % (0-5); LYMPHOCYTES 9.2 % (15-50); MCH 27.4 pg (26.0-34.0); MCHC 30.3 g/dL (31.0-37.0); MCV 90.3 fL (80.0-100.0); MEAN PLATELET VOLUME 11.7 fL (7.4-10.4); MONOCYTES 7.9 % (2-11); NEUTROPHILS 71.8 % (40-80); PLATELET COUNT 353 10x3/uL (130-400); RBC 3.21 10x6/uL (4.20-6.10); RDW 17.4 % (11.5-14.5); WBC 11.3 10x3/uL (4.8-10.8)
[2017-04-06 06:37] LABS: ALBUMIN 1.6 g/dL (3.4-5.0); ALKALINE PHOSPHATASE 71 U/L (46-116); CALCIUM 7.9 mg/dL (8.5-10.1); CARBON DIOXIDE 36.7 mmol/L (21.0-32.0); CHLORIDE - SERUM 103 mmol/L (98-107); CREATININE - SERUM 0.6 mg/dL (0.6-1.3); MAGNESIUM - SERUM 2.1 mg/dL (1.8-2.4); POTASSIUM - SERUM 3.8 mmol/L (3.5-5.1); PROTEIN - SERUM 5.3 g/dL (6.4-8.2); SODIUM 143 mmol/L (136-145); THYROID STIMULATING HORMONE 1.34 uIU/mL (0.36-3.74); UREA NITROGEN 26 mg/dL (7-18); VANCOMYCIN - TROUGH 9.1 ug/mL (10.0-20.0); eGFR NON AFRICAN AMERICAN > 90 mL/min (90-120)
[2017-04-06 06:38] LABS: ALT (SGPT) 80 U/L (10-68); CALC OSMOLALITY 294 mosm/kg (275-300); GLUCOSE 180 mg/dL (74-106)
[2017-04-07] VITALS (24 sets, daily range): BP systolic 88–156; BP diastolic 40–75
[2017-04-07 06:57] LABS: ALKALINE PHOSPHATASE 72 U/L (46-116); ALT (SGPT) 60 U/L (10-68); CALC OSMOLALITY 292 mosm/kg (275-300); CALCIUM 8.1 mg/dL (8.5-10.1); CARBON DIOXIDE 34.9 mmol/L (21.0-32.0); CHLORIDE - SERUM 104 mmol/L (98-107); CREATININE - SERUM 0.6 mg/dL (0.6-1.3); GLUCOSE 156 mg/dL (74-106); POTASSIUM - SERUM 3.9 mmol/L (3.5-5.1); PROTEIN - SERUM 5.8 g/dL (6.4-8.2); SODIUM 143 mmol/L (136-145); UREA NITROGEN 26 mg/dL (7-18); eGFR NON AFRICAN AMERICAN > 90 mL/min (90-120)
[2017-04-07 13:17] LABS: FUNGUS STAIN Final report (())
[2017-04-07 14:24] LABS: ACID FAST SMEAR Negative (()); AFB SPECIMEN PROCESSING Concentration (())
[2017-04-08] VITALS (24 sets, daily range): BP systolic 77–116; BP diastolic 57–97
[2017-04-08 06:19] LABS: BASOPHILS 0.2 % (0-2); EOSINOPHILS 0 % (0-7); HEMATOCRIT 33.6 % (42.0-54.0); HEMOGLOBIN 10.4 g/dL (13.5-17.5); IMMATURE GRANULOCYTES 0.5 % (0-5); LYMPHOCYTES 2.8 % (15-50); MCH 27.8 pg (26.0-34.0); MCV 89.8 fL (80.0-100.0); MEAN PLATELET VOLUME 12.3 fL (7.4-10.4); MONOCYTES 4.4 % (2-11); NEUTROPHILS 92.1 % (40-80); PLATELET COUNT 351 10x3/uL (130-400); RBC 3.74 10x6/uL (4.20-6.10); RDW 17.1 % (11.5-14.5)
[2017-04-08 06:22] LABS: WBC 19.2 10x3/uL (4.8-10.8)
[2017-04-08 06:44] LABS: ALBUMIN 2.2 g/dL (3.4-5.0); ALKALINE PHOSPHATASE 76 U/L (46-116); ALT (SGPT) 52 U/L (10-68); BILIRUBIN - TOTAL 0.78 mg/dL (0.2-1.3); CALCIUM 8.4 mg/dL (8.5-10.1); CARBON DIOXIDE 31.2 mmol/L (21.0-32.0); CHLORIDE - SERUM 105 mmol/L (98-107); MAGNESIUM - SERUM 2.4 mg/dL (1.8-2.4); PHOSPHOROUS 3.4 mg/dL (2.5-4.9); POTASSIUM - SERUM 4.1 mmol/L (3.5-5.1); SODIUM 143 mmol/L (136-145); UREA NITROGEN 29 mg/dL (7-18)
[2017-04-08 06:45] LABS: CALC OSMOLALITY 297 mosm/kg (275-300); CREATININE - SERUM 0.8 mg/dL (0.6-1.3); GLUCOSE 227 mg/dL (74-106); eGFR NON AFRICAN AMERICAN > 90 mL/min (90-120)
[2017-04-09] VITALS (22 sets, daily range): BP systolic 81–113; BP diastolic 51–80
[2017-04-09 06:15] LABS: BASOPHILS 0.3 % (0-2); EOSINOPHILS 1.5 % (0-7); HEMATOCRIT 29.1 % (42.0-54.0); HEMOGLOBIN 8.8 g/dL (13.5-17.5); IMMATURE GRANULOCYTES 0.5 % (0-5); LYMPHOCYTES 9.3 % (15-50); MCH 27.3 pg (26.0-34.0); MCHC 30.2 g/dL (31.0-37.0); MCV 90.4 fL (80.0-100.0); MEAN PLATELET VOLUME 12.1 fL (7.4-10.4); MONOCYTES 7.2 % (2-11); NEUTROPHILS 81.2 % (40-80); RBC 3.22 10x6/uL (4.20-6.10); RDW 17.2 % (11.5-14.5)
[2017-04-09 06:26] LABS: PLATELET COUNT 269 10x3/uL (130-400)
[2017-04-09 06:31] LABS: ALBUMIN 2.2 g/dL (3.4-5.0); ALKALINE PHOSPHATASE 60 U/L (46-116); ALT (SGPT) 37 U/L (10-68); BILIRUBIN - TOTAL 0.55 mg/dL (0.2-1.3); CALC OSMOLALITY 295 mosm/kg (275-300); CALCIUM 8.3 mg/dL (8.5-10.1); CARBON DIOXIDE 33.7 mmol/L (21.0-32.0); CHLORIDE - SERUM 107 mmol/L (98-107); CREATININE - SERUM 0.6 mg/dL (0.6-1.3); GLUCOSE 154 mg/dL (74-106); MAGNESIUM - SERUM 2.2 mg/dL (1.8-2.4); PHOSPHOROUS 2.7 mg/dL (2.5-4.9); POTASSIUM - SERUM 3.5 mmol/L (3.5-5.1); PROTEIN - SERUM 5.5 g/dL (6.4-8.2); SODIUM 144 mmol/L (136-145); UREA NITROGEN 29 mg/dL (7-18); eGFR NON AFRICAN AMERICAN > 90 mL/min (90-120)
[2017-04-10] VITALS (24 sets, daily range): BP systolic 85–117; BP diastolic 49–76
[2017-04-10 05:21] LABS: BASOPHILS 0.2 % (0-2); EOSINOPHILS 1.9 % (0-7); HEMATOCRIT 27.4 % (42.0-54.0); HEMOGLOBIN 8.3 g/dL (13.5-17.5); IMMATURE GRANULOCYTES 0.3 % (0-5); LYMPHOCYTES 10.9 % (15-50); MCH 27.2 pg (26.0-34.0); MCHC 30.3 g/dL (31.0-37.0); MCV 89.8 fL (80.0-100.0); MEAN PLATELET VOLUME 12.4 fL (7.4-10.4); MONOCYTES 6.4 % (2-11); NEUTROPHILS 80.3 % (40-80); PLATELET COUNT 285 10x3/uL (130-400); RBC 3.05 10x6/uL (4.20-6.10); RDW 17.3 % (11.5-14.5); WBC 10.7 10x3/uL (4.8-10.8)
[2017-04-10 05:53] LABS: ALBUMIN 2.3 g/dL (3.4-5.0); ALKALINE PHOSPHATASE 72 U/L (46-116); ALT (SGPT) 34 U/L (10-68); CALC OSMOLALITY 291 mosm/kg (275-300); CALCIUM 7.9 mg/dL (8.5-10.1); CARBON DIOXIDE 32.3 mmol/L (21.0-32.0); CHLORIDE - SERUM 105 mmol/L (98-107); CREATININE - SERUM 0.6 mg/dL (0.6-1.3); GLUCOSE 134 mg/dL (74-106); MAGNESIUM - SERUM 2.1 mg/dL (1.8-2.4); PHOSPHOROUS 2.7 mg/dL (2.5-4.9); POTASSIUM - SERUM 3.4 mmol/L (3.5-5.1); PROTEIN - SERUM 5.5 g/dL (6.4-8.2); SODIUM 143 mmol/L (136-145); UREA NITROGEN 26 mg/dL (7-18); eGFR NON AFRICAN AMERICAN > 90 mL/min (90-120)
[2017-04-11] VITALS (24 sets, daily range): BP systolic 86–119; BP diastolic 51–73
[2017-04-11 04:59] LABS: BASOPHILS 0.1 % (0-2); EOSINOPHILS 0.3 % (0-7); HEMOGLOBIN 8.9 g/dL (13.5-17.5); IMMATURE GRANULOCYTES 0.4 % (0-5); LYMPHOCYTES 4.7 % (15-50); MCH 27.3 pg (26.0-34.0); MCHC 30.7 g/dL (31.0-37.0); MEAN PLATELET VOLUME 12.3 fL (7.4-10.4); MONOCYTES 4.7 % (2-11); NEUTROPHILS 89.8 % (40-80); PLATELET COUNT 299 10x3/uL (130-400); RBC 3.26 10x6/uL (4.20-6.10); RDW 17.3 % (11.5-14.5)
[2017-04-11 05:02] LABS: WBC 16.7 10x3/uL (4.8-10.8)
[2017-04-11 05:11] LABS: CALC OSMOLALITY 288 mosm/kg (275-300); CALCIUM 8.4 mg/dL (8.5-10.1); CARBON DIOXIDE 30.8 mmol/L (21.0-32.0); CHLORIDE - SERUM 104 mmol/L (98-107); CREATININE - SERUM 0.6 mg/dL (0.6-1.3); GLUCOSE 129 mg/dL (74-106); MAGNESIUM - SERUM 2.2 mg/dL (1.8-2.4); PHOSPHOROUS 2.8 mg/dL (2.5-4.9); POTASSIUM - SERUM 3.4 mmol/L (3.5-5.1); SODIUM 142 mmol/L (136-145); UREA NITROGEN 25 mg/dL (7-18); eGFR NON AFRICAN AMERICAN > 90 mL/min (90-120)
[2017-04-12] VITALS (24 sets, daily range): BP systolic 83–116; BP diastolic 48–73
[2017-04-12 04:37] LABS: BASOPHILS 0.2 % (0-2); EOSINOPHILS 1.4 % (0-7); HEMATOCRIT 28.4 % (42.0-54.0); HEMOGLOBIN 8.8 g/dL (13.5-17.5); IMMATURE GRANULOCYTES 0.3 % (0-5); LYMPHOCYTES 6.1 % (15-50); MCH 27.6 pg (26.0-34.0); MEAN PLATELET VOLUME 11.8 fL (7.4-10.4); MONOCYTES 5.3 % (2-11); NEUTROPHILS 86.7 % (40-80); PLATELET COUNT 279 10x3/uL (130-400); RBC 3.19 10x6/uL (4.20-6.10); RDW 17.1 % (11.5-14.5); WBC 13.3 10x3/uL (4.8-10.8)
[2017-04-12 04:50] LABS: ALBUMIN 2.5 g/dL (3.4-5.0); ALKALINE PHOSPHATASE 77 U/L (46-116); CALC OSMOLALITY 287 mosm/kg (275-300); CHLORIDE - SERUM 102 mmol/L (98-107); CREATININE - SERUM 0.7 mg/dL (0.6-1.3); GLUCOSE 130 mg/dL (74-106); MAGNESIUM - SERUM 1.7 mg/dL (1.8-2.4); PHOSPHOROUS 2.2 mg/dL (2.5-4.9); PROTEIN - SERUM 5.6 g/dL (6.4-8.2); SODIUM 142 mmol/L (136-145); UREA NITROGEN 20 mg/dL (7-18); eGFR NON AFRICAN AMERICAN > 90 mL/min (90-120)
[2017-04-12 05:05] LABS: ALT (SGPT) 24 U/L (10-68)
[2017-04-12 16:12] LABS: AMPHOTERICIN B MIC 1.0 ug/mL (())
[2017-04-13] VITALS (24 sets, daily range): BP systolic 92–120; BP diastolic 50–77
[2017-04-13 05:05] LABS: BASOPHILS 0.3 % (0-2); EOSINOPHILS 6.1 % (0-7); HEMATOCRIT 27.9 % (42.0-54.0); HEMOGLOBIN 8.6 g/dL (13.5-17.5); IMMATURE GRANULOCYTES 0.5 % (0-5); LYMPHOCYTES 9.7 % (15-50); MCH 27.4 pg (26.0-34.0); MCHC 30.8 g/dL (31.0-37.0); MCV 88.9 fL (80.0-100.0); MONOCYTES 7.2 % (2-11); NEUTROPHILS 76.2 % (40-80); PLATELET COUNT 302 10x3/uL (130-400); RBC 3.14 10x6/uL (4.20-6.10); WBC 10.2 10x3/uL (4.8-10.8)
[2017-04-13 05:15] LABS: CALC OSMOLALITY 288 mosm/kg (275-300); CARBON DIOXIDE 38.1 mmol/L (21.0-32.0); CHLORIDE - SERUM 102 mmol/L (98-107); CREATININE - SERUM 0.7 mg/dL (0.6-1.3); GLUCOSE 95 mg/dL (74-106); SODIUM 144 mmol/L (136-145); UREA NITROGEN 18 mg/dL (7-18); eGFR NON AFRICAN AMERICAN > 90 mL/min (90-120)
[2017-04-13 05:18] LABS: POTASSIUM - SERUM 2.5 mmol/L (3.5-5.1)
[2017-04-13 13:15] LABS: FUNGUS CULTURE RESULT 1 Candida lusitaniae (())
[2017-04-14] VITALS (10 sets, daily range): BP systolic 91–118; BP diastolic 49–90
[2017-04-14 06:08] LABS: BASOPHILS 0.4 % (0-2); EOSINOPHILS 5.2 % (0-7); HEMATOCRIT 29.5 % (42.0-54.0); HEMOGLOBIN 9.2 g/dL (13.5-17.5); IMMATURE GRANULOCYTES 0.3 % (0-5); LYMPHOCYTES 9.2 % (15-50); MCH 27.5 pg (26.0-34.0); MCHC 31.2 g/dL (31.0-37.0); MCV 88.3 fL (80.0-100.0); MEAN PLATELET VOLUME 12.2 fL (7.4-10.4); MONOCYTES 6.7 % (2-11); NEUTROPHILS 78.2 % (40-80); PLATELET COUNT 344 10x3/uL (130-400); RBC 3.34 10x6/uL (4.20-6.10); WBC 11.8 10x3/uL (4.8-10.8)
[2017-04-14 06:17] LABS: CALCIUM 8.2 mg/dL (8.5-10.1); CARBON DIOXIDE 37.2 mmol/L (21.0-32.0); CHLORIDE - SERUM 97 mmol/L (98-107); CREATININE - SERUM 0.7 mg/dL (0.6-1.3); SODIUM 142 mmol/L (136-145); UREA NITROGEN 17 mg/dL (7-18); eGFR NON AFRICAN AMERICAN > 90 mL/min (90-120)
[2017-04-14 06:19] LABS: CALC OSMOLALITY 287 mosm/kg (275-300); GLUCOSE 154 mg/dL (74-106)
[2017-04-14 06:20] LABS: POTASSIUM - SERUM 2.5 mmol/L (3.5-5.1)
[2017-04-15] VITALS: BP 101/56
[2017-04-15 05:47] LABS: BASOPHILS 0.3 % (0-2); EOSINOPHILS 5.6 % (0-7); HEMATOCRIT 32.2 % (42.0-54.0); IMMATURE GRANULOCYTES 0.3 % (0-5); LYMPHOCYTES 8.8 % (15-50); MCH 27.4 pg (26.0-34.0); MCHC 31.1 g/dL (31.0-37.0); MCV 88.2 fL (80.0-100.0); MEAN PLATELET VOLUME 11.6 fL (7.4-10.4); MONOCYTES 6.3 % (2-11); NEUTROPHILS 78.7 % (40-80); PLATELET COUNT 350 10x3/uL (130-400); RBC 3.65 10x6/uL (4.20-6.10); RDW 17.1 % (11.5-14.5); WBC 11.7 10x3/uL (4.8-10.8)
[2017-04-15 06:00] VITALS: BP 110/60
[2017-04-15 06:24] LABS: CALC OSMOLALITY 289 mosm/kg (275-300); CALCIUM 8.8 mg/dL (8.5-10.1); CARBON DIOXIDE 37.5 mmol/L (21.0-32.0); CHLORIDE - SERUM 98 mmol/L (98-107); CREATININE - SERUM 0.8 mg/dL (0.6-1.3); GLUCOSE 108 mg/dL (74-106); SODIUM 144 mmol/L (136-145); UREA NITROGEN 17 mg/dL (7-18); eGFR NON AFRICAN AMERICAN > 90 mL/min (90-120)
[2017-04-15 06:26] LABS: POTASSIUM - SERUM 2.3 mmol/L (3.5-5.1)
[2017-04-15 08:42] VITALS: BP 99/50
[2017-04-15 09:36] LABS: MAGNESIUM - SERUM 1.7 mg/dL (1.8-2.4)
[2017-04-15 11:49] VITALS: BP 97/52
[2017-04-15 15:51] VITALS: BP 100/63
[2017-04-15 20:00] VITALS: BP 100/57
[2017-04-16 04:00] VITALS: BP 95/51
[2017-04-16 05:03] LABS: BASOPHILS 0.3 % (0-2); EOSINOPHILS 5.6 % (0-7); HEMOGLOBIN 8.6 g/dL (13.5-17.5); IMMATURE GRANULOCYTES 0.5 % (0-5); LYMPHOCYTES 9.3 % (15-50); MCH 27.2 pg (26.0-34.0); MCHC 30.7 g/dL (31.0-37.0); MCV 88.6 fL (80.0-100.0); MEAN PLATELET VOLUME 11.7 fL (7.4-10.4); NEUTROPHILS 77.3 % (40-80); PLATELET COUNT 293 10x3/uL (130-400); RBC 3.16 10x6/uL (4.20-6.10); RDW 17.1 % (11.5-14.5); WBC 10.9 10x3/uL (4.8-10.8)
[2017-04-16 05:11] LABS: CALCIUM 8.4 mg/dL (8.5-10.1); CARBON DIOXIDE 37.5 mmol/L (21.0-32.0); CHLORIDE - SERUM 98 mmol/L (98-107); CREATININE - SERUM 0.7 mg/dL (0.6-1.3); SODIUM 142 mmol/L (136-145); UREA NITROGEN 18 mg/dL (7-18); eGFR NON AFRICAN AMERICAN > 90 mL/min (90-120)
[2017-04-16 05:17] LABS: CALC OSMOLALITY 282 mosm/kg (275-300); GLUCOSE 65 mg/dL (74-106); POTASSIUM - SERUM 2.6 mmol/L (3.5-5.1)
[2017-04-16 08:41] VITALS: BP 96/52
[2017-04-16 11:15] LABS: MAGNESIUM - SERUM 1.9 mg/dL (1.8-2.4); PHOSPHOROUS 2.9 mg/dL (2.5-4.9)
[2017-04-16 11:55] VITALS: BP 106/56
[2017-04-16 16:04] VITALS: BP 105/63
[2017-04-16 20:00] VITALS: BP 96/55
[2017-04-17] VITALS: BP 105/57
[2017-04-17 04:00] VITALS: BP 118/60
[2017-04-17 04:42] LABS: BASOPHILS 0.4 % (0-2); EOSINOPHILS 0.5 % (0-7); HEMATOCRIT 30.1 % (42.0-54.0); HEMOGLOBIN 9.4 g/dL (13.5-17.5); IMMATURE GRANULOCYTES 0.6 % (0-5); LYMPHOCYTES 5.7 % (15-50); MCH 27.5 pg (26.0-34.0); MCHC 31.2 g/dL (31.0-37.0); MEAN PLATELET VOLUME 12.1 fL (7.4-10.4); MONOCYTES 6.4 % (2-11); NEUTROPHILS 86.4 % (40-80); PLATELET COUNT 309 10x3/uL (130-400); RBC 3.42 10x6/uL (4.20-6.10); RDW 16.9 % (11.5-14.5)
[2017-04-17 04:45] LABS: WBC 14.2 10x3/uL (4.8-10.8)
[2017-04-17 04:59] LABS: ANION GAP 12.7 mmol/L (8-16); CALCIUM 8.8 mg/dL (8.5-10.1); PHOSPHOROUS 2.8 mg/dL (2.5-4.9)
[2017-04-17 05:00] LABS: CREATININE - SERUM 1.1 mg/dL (0.6-1.3); MAGNESIUM - SERUM 2.6 mg/dL (1.8-2.4)
[2017-04-17 05:01] LABS: POTASSIUM - SERUM 4.7 mmol/L (3.5-5.1)
[2017-04-17 08:21] VITALS: BP 117/64
[2017-04-17 12:36] VITALS: BP 104/65
[2017-04-17 16:23] VITALS: BP 93/62
[2017-04-17 23:37] VITALS: BP 90/52
[2017-04-18 04:00] VITALS: BP 97/60
[2017-04-18 05:13] LABS: BASOPHILS 0.4 % (0-2); EOSINOPHILS 2.3 % (0-7); HEMATOCRIT 29.2 % (42.0-54.0); HEMOGLOBIN 8.9 g/dL (13.5-17.5); IMMATURE GRANULOCYTES 0.4 % (0-5); LYMPHOCYTES 4.7 % (15-50); MCH 26.8 pg (26.0-34.0); MCHC 30.5 g/dL (31.0-37.0); MONOCYTES 5.3 % (2-11); NEUTROPHILS 86.9 % (40-80); PLATELET COUNT 256 10x3/uL (130-400); RBC 3.32 10x6/uL (4.20-6.10); RDW 17.1 % (11.5-14.5); WBC 15.4 10x3/uL (4.8-10.8)
[2017-04-18 05:41] LABS: ALBUMIN 3.8 g/dL (3.4-5.0); ANION GAP 12.6 mmol/L (8-16); BILIRUBIN - TOTAL 0.8 mg/dL (0.2-1.3); CALCIUM 8.7 mg/dL (8.5-10.1); CREATININE - SERUM 1.4 mg/dL (0.6-1.3); MAGNESIUM - SERUM 2.4 mg/dL (1.8-2.4); PHOSPHOROUS 2.9 mg/dL (2.5-4.9); POTASSIUM - SERUM 3.6 mmol/L (3.5-5.1); PROTEIN - SERUM 6.9 g/dL (6.4-8.2)
[2017-04-18 08:04] VITALS: BP 97/58
[2017-04-18 11:58] VITALS: BP 98/53
[2017-04-18 16:24] VITALS: BP 89/57
[2017-04-18 20:00] VITALS: BP 78/41
[2017-04-19 04:00] VITALS: BP 86/50
[2017-04-19 05:28] LABS: BASOPHILS 0.2 % (0-2); EOSINOPHILS 3.3 % (0-7); HEMATOCRIT 26.3 % (42.0-54.0); HEMOGLOBIN 8.1 g/dL (13.5-17.5); IMMATURE GRANULOCYTES 0.5 % (0-5); LYMPHOCYTES 6.2 % (15-50); MCH 27.1 pg (26.0-34.0); MCHC 30.8 g/dL (31.0-37.0); MEAN PLATELET VOLUME 11.5 fL (7.4-10.4); MONOCYTES 5.9 % (2-11); NEUTROPHILS 83.9 % (40-80); PLATELET COUNT 221 10x3/uL (130-400); RBC 2.99 10x6/uL (4.20-6.10); WBC 12.2 10x3/uL (4.8-10.8)
[2017-04-19 05:43] LABS: ALBUMIN 3.5 g/dL (3.4-5.0); ANION GAP 14.1 mmol/L (8-16); BILIRUBIN - TOTAL 0.8 mg/dL (0.2-1.3); CALCIUM 8.6 mg/dL (8.5-10.1); CARBON DIOXIDE 30.7 mmol/L (21.0-32.0); MAGNESIUM - SERUM 2.3 mg/dL (1.8-2.4); PHOSPHOROUS 2.9 mg/dL (2.5-4.9); POTASSIUM - SERUM 3.8 mmol/L (3.5-5.1); PROTEIN - SERUM 6.7 g/dL (6.4-8.2)
[2017-04-19 05:44] LABS: CREATININE - SERUM 1.9 mg/dL (0.6-1.3)
[2017-04-19 09:41] VITALS: BP 93/52
[2017-04-19 11:48] VITALS: BP 98/56
[2017-04-19 15:53] VITALS: BP 82/48
[2017-04-19 20:00] VITALS: BP 88/51
[2017-04-20 04:00] VITALS: BP 83/46
[2017-04-20 08:10] LABS: BILIRUBIN - TOTAL 0.5 mg/dL (0.2-1.3); C-REACTIVE PROTEIN 15.5 mg/dL (0.0-0.9); CALCIUM 8.8 mg/dL (8.5-10.1); CARBON DIOXIDE 30.9 mmol/L (21.0-32.0); MAGNESIUM - SERUM 2.5 mg/dL (1.8-2.4); PHOSPHOROUS 2.8 mg/dL (2.5-4.9); POTASSIUM - SERUM 3.9 mmol/L (3.5-5.1); PROTEIN - SERUM 6.5 g/dL (6.4-8.2)
[2017-04-20 08:11] LABS: CREATININE - SERUM 2.7 mg/dL (0.6-1.3)
[2017-04-20 08:30] VITALS: BP 93/53
[2017-04-20 09:34] LABS: ERYTHROCYTE SEDIMENTATION RATE 30 mm/hr (0-20)
[2017-04-20 09:54] LABS: BASOPHILS 0.2 % (0-2); EOSINOPHILS 1.3 % (0-7); HEMATOCRIT 27.1 % (42.0-54.0); HEMOGLOBIN 8.4 g/dL (13.5-17.5); IMMATURE GRANULOCYTES 0.3 % (0-5); LYMPHOCYTES 5.5 % (15-50); MCH 27.3 pg (26.0-34.0); MEAN PLATELET VOLUME 12.5 fL (7.4-10.4); MONOCYTES 7.3 % (2-11); NEUTROPHILS 85.4 % (40-80); PLATELET COUNT 237 10x3/uL (130-400); RBC 3.08 10x6/uL (4.20-6.10); RDW 17.4 % (11.5-14.5); WBC 12.3 10x3/uL (4.8-10.8)
[2017-04-20 15:40] VITALS: BP 90/52
[2017-04-20 20:00] VITALS: BP 110/77
[2017-04-21 04:00] VITALS: BP 94/47
[2017-04-21 04:55] LABS: BASOPHILS 0.1 % (0-2); EOSINOPHILS 0.2 % (0-7); HEMATOCRIT 28.2 % (42.0-54.0); HEMOGLOBIN 8.8 g/dL (13.5-17.5); IMMATURE GRANULOCYTES 0.4 % (0-5); LYMPHOCYTES 4.4 % (15-50); MCH 27.2 pg (26.0-34.0); MCHC 31.2 g/dL (31.0-37.0); MCV 87.3 fL (80.0-100.0); MEAN PLATELET VOLUME 12.9 fL (7.4-10.4); MONOCYTES 4.3 % (2-11); NEUTROPHILS 90.6 % (40-80); PLATELET COUNT 228 10x3/uL (130-400); RBC 3.23 10x6/uL (4.20-6.10); RDW 17.5 % (11.5-14.5); WBC 14.2 10x3/uL (4.8-10.8)
[2017-04-21 05:02] LABS: ALBUMIN 2.7 g/dL (3.4-5.0); ANION GAP 14.9 mmol/L (8-16); BILIRUBIN - TOTAL 0.6 mg/dL (0.2-1.3); CALCIUM 9.3 mg/dL (8.5-10.1); CARBON DIOXIDE 29.2 mmol/L (21.0-32.0); CREATININE - SERUM 3.3 mg/dL (0.6-1.3); MAGNESIUM - SERUM 2.4 mg/dL (1.8-2.4); PHOSPHOROUS 3.4 mg/dL (2.5-4.9); POTASSIUM - SERUM 4.1 mmol/L (3.5-5.1); PROTEIN - SERUM 6.7 g/dL (6.4-8.2)
[2017-04-21 05:13] LABS: APPEARANCE HAZY (CLEAR); BILIRUBIN NEGATIVE (NEGATIVE); COLOR YELLOW (YELLOW); GLUCOSE NEGATIVE (NEGATIVE); KETONE NEGATIVE (NEGATIVE); NITRITE NEGATIVE (NEGATIVE); PROTEIN 2+ mg/dL (NEGATIVE); SPECIFIC GRAVITY 1.015 (1.005-1.020); UROBILINOGEN NORMAL (NORMAL)
[2017-04-21 05:14] LABS: BACTERIA MODERATE /hpf (NONE SEEN); EPITHELIAL CELLS 0-5 /hpf (0-5); RED CELLS - URINE 0-5 /hpf (0-5); WHITE CELLS - URINE 0-5 /hpf (0-5)
[2017-04-21 08:28] VITALS: BP 82/46
[2017-04-21 12:39] VITALS: BP 87/49
[2017-04-21 15:49] VITALS: BP 82/47
[2017-04-21 20:00] VITALS: BP 83/43
[2017-04-22 04:00] VITALS: BP 98/70
[2017-04-22 06:08] LABS: BASOPHILS 0.2 % (0-2); EOSINOPHILS 1.3 % (0-7); HEMATOCRIT 26.6 % (42.0-54.0); HEMOGLOBIN 8.2 g/dL (13.5-17.5); IMMATURE GRANULOCYTES 0.5 % (0-5); LYMPHOCYTES 4.1 % (15-50); MCH 26.7 pg (26.0-34.0); MCHC 30.8 g/dL (31.0-37.0); MCV 86.6 fL (80.0-100.0); MEAN PLATELET VOLUME 12.9 fL (7.4-10.4); MONOCYTES 4.5 % (2-11); NEUTROPHILS 89.4 % (40-80); PLATELET COUNT 213 10x3/uL (130-400); RBC 3.07 10x6/uL (4.20-6.10); RDW 17.9 % (11.5-14.5); WBC 15.9 10x3/uL (4.8-10.8)
[2017-04-22 06:25] LABS: ALBUMIN 2.5 g/dL (3.4-5.0); ANION GAP 19.2 mmol/L (8-16); BILIRUBIN - TOTAL 0.46 mg/dL (0.2-1.3); CALCIUM 8.8 mg/dL (8.5-10.1); CARBON DIOXIDE 24.5 mmol/L (21.0-32.0); CREATININE - SERUM 3.7 mg/dL (0.6-1.3); POTASSIUM - SERUM 4.7 mmol/L (3.5-5.1); PROTEIN - SERUM 6.3 g/dL (6.4-8.2)
[2017-04-22 08:12] VITALS: BP 86/47
[2017-04-22 12:24] VITALS: BP 86/49
[2017-04-22 15:57] VITALS: BP 106/53
[2017-04-22 20:00] VITALS: BP 100/59
[2017-04-23] VITALS: BP 99/61
[2017-04-23 04:00] VITALS: BP 96/55
[2017-04-23 05:42] LABS: BASOPHILS 0.1 % (0-2); EOSINOPHILS 1.8 % (0-7); HEMATOCRIT 26.7 % (42.0-54.0); HEMOGLOBIN 8.2 g/dL (13.5-17.5); IMMATURE GRANULOCYTES 0.5 % (0-5); MCH 26.9 pg (26.0-34.0); MCHC 30.7 g/dL (31.0-37.0); MCV 87.5 fL (80.0-100.0); MEAN PLATELET VOLUME 12.6 fL (7.4-10.4); MONOCYTES 6.2 % (2-11); NEUTROPHILS 86.4 % (40-80); PLATELET COUNT 204 10x3/uL (130-400); RBC 3.05 10x6/uL (4.20-6.10); RDW 18.2 % (11.5-14.5); WBC 15.8 10x3/uL (4.8-10.8)
[2017-04-23 06:04] LABS: ALBUMIN 2.5 g/dL (3.4-5.0); BILIRUBIN - TOTAL 0.5 mg/dL (0.2-1.3); CALCIUM 8.9 mg/dL (8.5-10.1); CARBON DIOXIDE 22.7 mmol/L (21.0-32.0); CREATININE - SERUM 4.2 mg/dL (0.6-1.3); POTASSIUM - SERUM 4.7 mmol/L (3.5-5.1); PROTEIN - SERUM 6.5 g/dL (6.4-8.2)
[2017-04-23 09:33] VITALS: BP 116/60
[2017-04-23 13:28] VITALS: BP 90/66
[2017-04-23 18:40] VITALS: BP 90/46
[2017-04-23 20:00] VITALS: BP 100/53
[2017-04-24] VITALS: BP 99/57
[2017-04-24 04:00] VITALS: BP 102/58
[2017-04-24 05:20] LABS: BASOPHILS 0.2 % (0-2); EOSINOPHILS 1.5 % (0-7); HEMATOCRIT 27.5 % (42.0-54.0); HEMOGLOBIN 8.4 g/dL (13.5-17.5); IMMATURE GRANULOCYTES 1.3 % (0-5); LYMPHOCYTES 6.4 % (15-50); MCH 26.8 pg (26.0-34.0); MCHC 30.5 g/dL (31.0-37.0); MCV 87.6 fL (80.0-100.0); MEAN PLATELET VOLUME 12.4 fL (7.4-10.4); MONOCYTES 5.3 % (2-11); NEUTROPHILS 85.3 % (40-80); PLATELET COUNT 204 10x3/uL (130-400); RBC 3.14 10x6/uL (4.20-6.10); RDW 18.2 % (11.5-14.5); WBC 12.3 10x3/uL (4.8-10.8)
[2017-04-24 05:33] LABS: ALBUMIN 2.4 g/dL (3.4-5.0); ANION GAP 20.7 mmol/L (8-16); BILIRUBIN - TOTAL 0.45 mg/dL (0.2-1.3); CALCIUM 8.9 mg/dL (8.5-10.1); CARBON DIOXIDE 22.8 mmol/L (21.0-32.0); CREATININE - SERUM 4.2 mg/dL (0.6-1.3); MAGNESIUM - SERUM 2.3 mg/dL (1.8-2.4); PHOSPHOROUS 5.2 mg/dL (2.5-4.9); POTASSIUM - SERUM 4.5 mmol/L (3.5-5.1); PROTEIN - SERUM 6.6 g/dL (6.4-8.2)
[2017-04-24 07:41] VITALS: BP 96/54
[2017-04-24 12:27] VITALS: BP 92/53
[2017-04-24 15:54] VITALS: BP 100/60
[2017-04-24 20:00] VITALS: BP 101/55
[2017-04-25] VITALS: BP 88/48
[2017-04-25 04:00] VITALS: BP 108/58
[2017-04-25 05:45] LABS: BASOPHILS 0.4 % (0-2); EOSINOPHILS 2.6 % (0-7); HEMATOCRIT 26.6 % (42.0-54.0); HEMOGLOBIN 8.2 g/dL (13.5-17.5); IMMATURE GRANULOCYTES 1.6 % (0-5); MCH 27.2 pg (26.0-34.0); MCHC 30.8 g/dL (31.0-37.0); MCV 88.1 fL (80.0-100.0); MEAN PLATELET VOLUME 11.6 fL (7.4-10.4); MONOCYTES 5.8 % (2-11); NEUTROPHILS 82.6 % (40-80); PLATELET COUNT 183 10x3/uL (130-400); RBC 3.02 10x6/uL (4.20-6.10); RDW 18.3 % (11.5-14.5); WBC 15.2 10x3/uL (4.8-10.8)
[2017-04-25 06:15] LABS: ALBUMIN 2.2 g/dL (3.4-5.0); ANION GAP 17.7 mmol/L (8-16); BILIRUBIN - TOTAL 0.32 mg/dL (0.2-1.3); CALCIUM 8.4 mg/dL (8.5-10.1); CARBON DIOXIDE 22.4 mmol/L (21.0-32.0); POTASSIUM - SERUM 4.1 mmol/L (3.5-5.1); PROTEIN - SERUM 6.2 g/dL (6.4-8.2)
[2017-04-25 07:53] VITALS: BP 100/52
[2017-04-25 12:44] VITALS: BP 92/54
[2017-04-25 15:56] VITALS: BP 106/53
[2017-04-25 20:00] VITALS: BP 126/85
[2017-04-26 04:00] VITALS: BP 104/65
[2017-04-26 05:39] LABS: BASOPHILS 0.4 % (0-2); EOSINOPHILS 3.9 % (0-7); HEMATOCRIT 27.3 % (42.0-54.0); HEMOGLOBIN 8.3 g/dL (13.5-17.5); IMMATURE GRANULOCYTES 1.5 % (0-5); LYMPHOCYTES 8.2 % (15-50); MCH 26.9 pg (26.0-34.0); MCHC 30.4 g/dL (31.0-37.0); MCV 88.6 fL (80.0-100.0); MEAN PLATELET VOLUME 12.3 fL (7.4-10.4); MONOCYTES 5.6 % (2-11); NEUTROPHILS 80.4 % (40-80); PLATELET COUNT 189 10x3/uL (130-400); RBC 3.08 10x6/uL (4.20-6.10); RDW 18.4 % (11.5-14.5); WBC 12.7 10x3/uL (4.8-10.8)
[2017-04-26 05:57] LABS: ALBUMIN 2.2 g/dL (3.4-5.0); ANION GAP 18.2 mmol/L (8-16); BILIRUBIN - TOTAL 0.39 mg/dL (0.2-1.3); CALCIUM 8.2 mg/dL (8.5-10.1); CREATININE - SERUM 3.7 mg/dL (0.6-1.3); POTASSIUM - SERUM 4.2 mmol/L (3.5-5.1); PROTEIN - SERUM 6.1 g/dL (6.4-8.2)
[2017-04-26 09:06] VITALS: BP 99/59
[2017-04-26 13:22] VITALS: BP 96/59
[2017-04-26 17:29] VITALS: BP 102/64
[2017-04-26 19:09] LABS: AMPHOTERICIN B MIC 0.5 ug/mL (())
[2017-04-26 20:00] VITALS: BP 114/70
[2017-04-27] VITALS: BP 99/54
[2017-04-27 04:00] VITALS: BP 98/56
[2017-04-27 08:41] LABS: HEMATOCRIT 26.2 % (42.0-54.0); HEMOGLOBIN 8.2 g/dL (13.5-17.5); LYMPHOCYTES 8.4 % (15-50); MCH 27.6 pg (26.0-34.0); MCHC 31.3 g/dL (31.0-37.0); MCV 88.2 fL (80.0-100.0); MEAN PLATELET VOLUME 12.6 fL (7.4-10.4); NEUTROPHILS 85.1 % (40-80); PLATELET COUNT 177 10x3/uL (130-400); RBC 2.97 10x6/uL (4.20-6.10); RDW 18.1 % (11.5-14.5)
[2017-04-27 09:01] LABS: ANION GAP 20.3 mmol/L (8-16); BILIRUBIN - TOTAL 0.38 mg/dL (0.2-1.3); CALCIUM 7.9 mg/dL (8.5-10.1); CARBON DIOXIDE 19.1 mmol/L (21.0-32.0); CREATININE - SERUM 3.3 mg/dL (0.6-1.3); POTASSIUM - SERUM 4.4 mmol/L (3.5-5.1); PROTEIN - SERUM 5.9 g/dL (6.4-8.2)
[2017-04-27 09:28] VITALS: BP 114/54
[2017-04-27 12:41] VITALS: BP 117/68
[2017-04-27 16:39] VITALS: BP 120/60
[2017-04-27 20:00] VITALS: BP 132/51
[2017-04-28] VITALS (7 sets, daily range): BP systolic 97–115; BP diastolic 57–72
[2017-04-29 04:00] VITALS: BP 120/74
[2017-04-29 09:30] VITALS: BP 114/68
[2017-04-29 10:53] LABS: ALBUMIN 2.2 g/dL (3.4-5.0); ANION GAP 16.5 mmol/L (8-16); CALCIUM 7.8 mg/dL (8.5-10.1); CARBON DIOXIDE 21.3 mmol/L (21.0-32.0); CREATININE - SERUM 2.5 mg/dL (0.6-1.3); PHOSPHOROUS 5.5 mg/dL (2.5-4.9); POTASSIUM - SERUM 3.8 mmol/L (3.5-5.1)
[2017-04-29 12:40] VITALS: BP 108/66
[2017-04-29 15:30] VITALS: BP 109/58
[2017-04-30 04:00] VITALS: BP 107/77
[2017-05-04 12:15] LABS: FUNGUS MYCOLOGY CULTURE Final report (())
== END 2017-04-30 10:50 | disposition home health service (06) | DRG 853 ==
LOC: D.ER 10:56 → D.MS 17:36 → D.ICU 17:36 → D.M2 17:36 → D.ICU 18:58 → D.M2 03-19 20:11 → D.ICU 03-29 23:24 → D.MS 04-14 11:07
PROVIDERS: Emergency Medicine; Family Medicine; Internal Medicine Gastroenterology; Internal Medicine Nephrology; Internal Medicine Pulmonary Disease; Specialist; Surgery
PROC: 0QB10ZZ Excision of Sacrum, Open Approach (ICD-10-PCS; 2017-03-25)
PROC: 0QB30ZZ Excision of Left Pelvic Bone, Open Approach (ICD-10-PCS; principal; 2017-03-25 14:00)
PROC: 5A09457 Assistance with Respiratory Ventilation, 24-96 Consecutive Hours, Continuous Positive Airway Pressure (ICD-10-PCS; 2017-03-29)
PROC: 02HV33Z Insertion of Infusion Device into Superior Vena Cava, Percutaneous Approach (ICD-10-PCS; 2017-03-30)
PROC: B548ZZA Ultrasonography of Superior Vena Cava, Guidance (ICD-10-PCS; 2017-03-30)
PROC: 0BH17EZ Insertion of Endotracheal Airway into Trachea, Via Natural or Artificial Opening (ICD-10-PCS; 2017-03-31)
PROC: 5A1955Z Respiratory Ventilation, Greater than 96 Consecutive Hours (ICD-10-PCS; 2017-03-31)
PROC: 0W9B30Z Drainage of Left Pleural Cavity with Drainage Device, Percutaneous Approach (ICD-10-PCS; 2017-04-02)
DX: A41.9 Sepsis, unspecified organism (principal); R53.2 Functional quadriplegia; J96.00 Acute respiratory failure, unspecified whether with hypoxia or hypercapnia; L89.154 Pressure ulcer of sacral region, stage 4; K72.00 Acute and subacute hepatic failure without coma; J69.0 Pneumonitis due to inhalation of food and vomit; E43 Unspecified severe protein-calorie malnutrition; J18.9 Pneumonia, unspecified organism; N39.0 Urinary tract infection, site not specified; M86.9 Osteomyelitis, unspecified; J98.11 Atelectasis; J90 Pleural effusion, not elsewhere classified; E87.3 Alkalosis; G72.81 Critical illness myopathy; N17.9 Acute kidney failure, unspecified; Z66 Do not resuscitate; R79.89 Other specified abnormal findings of blood chemistry; E11.65 Type 2 diabetes mellitus with hyperglycemia; E11.42 Type 2 diabetes mellitus with diabetic polyneuropathy; E11.622 Type 2 diabetes mellitus with other skin ulcer; L89.511 Pressure ulcer of right ankle, stage 1; L89.620 Pressure ulcer of left heel, unstageable; L89.619 Pressure ulcer of right heel, unspecified stage; E11.69 Type 2 diabetes mellitus with other specified complication; B95.2 Enterococcus as the cause of diseases classified elsewhere; B96.5 Pseudomonas (aeruginosa) (mallei) (pseudomallei) as the cause of diseases classified elsewhere; B95.7 Other staphylococcus as the cause of diseases classified elsewhere; I10 Essential (primary) hypertension; F41.9 Anxiety disorder, unspecified; D64.9 Anemia, unspecified; Z86.73 Personal history of transient ischemic attack (TIA), and cerebral infarction without residual deficits; Z72.0 Tobacco use; E87.6 Hypokalemia; Z68.28 Body mass index [BMI] 28.0-28.9, adult